=== PATIENT | female | born 1975 | race Caucasian/White ===

== ENCOUNTER 2017-03-19 14:31 | Emergency (ER) | payer OTHER ==
[~2017-03-19] VITALS: Ht 160 cm; Wt 99.8 kg
[2017-03-19 14:44] VITALS: BP 137/87
[2017-03-19] MEDS ORDERED: PANTOPRAZOLE SO40 M1 PO (15:05)
[2017-03-19] MEDS ORDERED: SYNTHROID112 MCG PO (15:05)
--- NOTE | 2017-03-19 15:11 | ED GENERAL ADULT ---
History of Present Illness General Chief Complaint: General Adult Stated Complaint: CONTACT WITH PATIENT BLOOD (WORK INCIDENT) Source: patient Exam Limitations: no limitations Vital Signs & Intake/Output Vital Signs & Intake/Output Vital Signs Date Time Temp Pulse Resp B/P B/P Pulse O2 O2 Flow FiO2 Mean Ox Delivery Rate 03/19 1502 99 Room Air 03/19 1444 96.6 96 20 137/87 96 Room Air Primary (NATIVIDAD MCDONOUGH DO) Allergies Coded Allergies: NO KNOWN ALLERGIES (09/23/13) Reconcile Medications Levothyroxine Sodium (Synthroid) 112 MCG TABLET 112 MCG PO DAILY HYPOTHYROID (Reported) Pantoprazole Sodium 40 MG TABLET.DR 40 MG PO DAILY ACID REFLUX (Reported) Triage Note: STATES SHE WAS SPLASHED WITH A SMALL AMOUNT OF BLOOD ON R FOREARM AFTER DOING AN ACCUCHECK ON A PT AT [facility] (ENDOCRINOLOGY). OCCURRED AT 1400. Triage Nurses Notes Reviewed? yes Onset: Abrupt Duration: hour(s): Timing: recent history : No Patient currently breastfeeds: No HPI: 03/19/17 3:50 pm 41-year-old female presents to the emergency department for blood exposure. The patient was drawing a fingerstick and the blood squirted onto the intact skin of her right arm. There was no mucous membrane exposure. She has no open cuts or bruises on her right arm. The onset of the symptoms were abrupt, the duration was approximately 2 hours ago, the severity was significant; as her symptoms required to come to the emergency department for care. Past History Travel History Traveled to [place] past 21 day No Medical History Any Pertinent Medical History? see below for history Endocrine: hypothyroidism Surgical History Surgical History: non-contributory Psychosocial History What is your primary language [place] Citizen Tobacco Use: Never used ETOH Use: occasional use Family History Hx Contributory? No Review of Systems Review of Systems Constitutional: Reports: no symptoms. EENTM: Reports: no symptoms. Respiratory: Reports: no symptoms. Cardiovascular: Reports: no symptoms. GI: Reports: no symptoms. Genitourinary: Reports: no symptoms. Musculoskeletal: Reports: no symptoms. Skin: Reports: see HPI. Neurological/Psychological: Reports: no symptoms. Hematologic/Endocrine: Reports: no symptoms. Immunologic/Allergic: Reports: no symptoms. Physical Exam Physical Exam General Appearance: well developed/nourished, alert, awake, anxious, mild distress Head: atraumatic, normal appearance Eyes: Bilateral: normal appearance, PERRL, EOMI. Ears, Nose, Throat: normal pharynx, normal ENT inspection Neck: normal inspection, supple, full range of motion Respiratory: normal breath sounds, chest non-tender, no respiratory distress Cardiovascular: regular rate/rhythm Peripheral Pulses: 4+ radial (R) Back: normal range of motion Extremities: normal inspection Neurologic/Psych: no motor/sensory deficits, awake, alert, oriented x 3 Skin: intact, normal color, warm/dry Comments: Examination of the right arm was completely normal. Core Measures ACS in differential dx? No CVA/TIA Diagnosis: No Severe Sepsis Present: No Septic Shock Present: No Progress Differential Diagnoses I considered the following diagnoses in my evaluation of the patient: [Body fluid exposure, hepatitis, HIV] Plan of Care: Follow-up at occupational. No blood to blood contact. No blood to mucous membrane contact. Initial ED EKG: none Departure Departure Disposition: HOME OR SELF CARE Condition: Stable Clinical Impression Primary Impression: Exposure to blood Referrals: TULIO WAN MD (PCP/Family) Departure Forms: Customer Survey General Discharge Information Critical Care Note Critical Care Note Critical Care Time: non-applicable
== END 2017-03-19 16:24 ==
LOC: ERH 14:31
DX: Z77.21 Contact with and (suspected) exposure to potentially hazardous body fluids (principal)
CPT/HCPCS: 99282

== ENCOUNTER 2018-04-18 03:38 | Emergency (ER) | payer OTHER ==
[~2018-04-18] VITALS: Ht 160 cm; Wt 104.3 kg
[~2018-04-18 03:38] MED LIST: PANTOPRAZOLE SO40 M1 PO; SYNTHROID112 MCG PO
[2018-04-18 04:04] VITALS: BP 138/89
[2018-04-18] MEDS ORDERED: IBUPROFEN600 M1 PO (04:27)
[2018-04-18] MEDS ORDERED: CLEOCIN HCL150 M1 PO (04:27)
--- NOTE | 2018-04-18 04:27 | ED HEAD/FACIAL INJ COMPLAINT ---
History of Present Illness General Chief Complaint: Facial or Head Injury Stated Complaint: L SIDE FACIAL SWELLING DENIES DENTAL PAIN Source: patient, old records Exam Limitations: no limitations Vital Signs & Intake/Output Vital Signs & Intake/Output Vital Signs Date Time Temp Pulse Resp B/P B/P Pulse O2 O2 Flow FiO2 Mean Ox Delivery Rate 04/18 0404 96.5 93 20 138/89 99 Room Air Allergies Coded Allergies: NO KNOWN ALLERGIES (UNKNOWN 04/18/18) Reconcile Medications Clindamycin HCl (Cleocin HCl) 150 MG CAPSULE 1 CAP PO TID parotitis Ibuprofen 600 MG TABLET 1 TAB PO Q6P PRN pain with food Levothyroxine Sodium (Synthroid) 112 MCG TABLET 112 MCG PO DAILY HYPOTHYROID (Reported) Pantoprazole Sodium 40 MG TABLET.DR 40 MG PO DAILY ACID REFLUX (Reported) Triage Note: PT HERE WITH C/O LEFT FACIAL/CHEEK SWELLING THAT BEGAN TONIGHT. PT DENIES ANYTHING NEW IN HER ROUTINE, DENIES PAIN. STATES THAT IT FEELS NUMB AND HER THROAT FEELS SCRATCHY. Triage Nurses Notes Reviewed? yes Onset: Just prior to arrival Severity: moderate, severe Location: Left cheek Loss of Consciousness: no loss of consciousness Associated Symptoms: loss of appetite LMP (ages 10-50): unknown : No Patient currently breastfeeds: No HPI: Prior to admission patient was awoken with left cheek pain and swelling. She denies fever chills nausea vomiting diarrhea abdominal pain chest pain shortness of breath headache dysuria rash bleeding tooth pain. Past History Medical History Any Pertinent Medical History? see below for history Endocrine: hypothyroidism Surgical History Surgical History: non-contributory Psychosocial History What is your primary language [place] Family History Hx Contributory? No Review of Systems Review of Systems Constitutional: Reports: no symptoms. EENTM: Reports: see HPI. Respiratory: Reports: no symptoms. Cardiovascular: Reports: no symptoms. GI: Reports: no symptoms. Genitourinary: Reports: no symptoms. Musculoskeletal: Reports: no symptoms. Skin: Reports: no symptoms. Neurological/Psychological: Reports: no symptoms. Hematologic/Endocrine: Reports: no symptoms. Immunologic/Allergic: Reports: no symptoms. All Other Systems: Reviewed and Negative Physical Exam Physical Exam General Appearance: well developed/nourished, alert, awake, anxious, mild distress, obese Head: atraumatic, swelling (left cheek), tenderness Eyes: Bilateral: normal appearance, PERRL, EOMI. Ears, Nose, Throat: normal pharynx, hearing grossly normal, Stensen duct with surrounding erythema Neck: normal inspection, supple, full range of motion, trachea midline, lymphadenopathy (R), lymphadenopathy (L) Respiratory: normal breath sounds, chest non-tender, no respiratory distress, quiet respiration, lungs clear Cardiovascular: regular rate/rhythm, normal peripheral pulses, norml femoral pulses equa Gastrointestinal: normal bowel sounds, soft, non-tender, no organomegaly Back: normal inspection, normal range of motion, no vertebral tenderness Extremities: normal inspection, normal capillary refill, normal range of motion, no edema Psychiatric: awake, alert, oriented x 3 Cranial Nerves: normal hearing, normal speech, PERRL Coordination/Gait: normal finger to nose, normal gait Motor/Sensory: no motor/sensory deficits Reflexes: 2+: bicep (R), bicep (L). Skin: intact, normal color, warm/dry Lymphatic: no anterior cervical angie Progress Differential Diagnosis: parotitis Plan of Care: Current Medications Sig/Beulah Start time Last Medication Dose Stop Time Status Admin Clindamycin 300 MG ONCE ONE 04/18 430 UNVr (Cleocin 150MG Cap) 04/18 431 Ibuprofen 600 MG ONCE ONE 04/18 430 UNVr (Motrin) 04/18 431 Departure Departure Time of Disposition: 425 Disposition: HOME OR SELF CARE Condition: Stable Clinical Impression Primary Impression: Parotiditis Referrals: Rima Wilson MD Call for ENT follow up Sue Isabel MD (PCP/Family) Departure Forms: Customer Survey General Discharge Information RELEASE- WORK Prescriptions: Current Visit Scripts Clindamycin HCl (Cleocin HCl) 1 CAP PO TID #30 CAP Ibuprofen 1 TAB PO Q6P PRN pain #50 TAB with food
== END 2018-04-18 04:42 ==
LOC: ERH 03:38
DX: K11.20 Sialoadenitis, unspecified (principal)